=== PATIENT | male | born 1945 | race Caucasian/White ===

== ENCOUNTER → 2021-10-11 | Outpatient (CLI) | payer MEDICARE, OTHER ==
[~2021-10-11] MED LIST: ALEVE 220MG220 MG PO; AMARYL1 MG PO; ASPI325T6 PO; COLACE 100100 MG/CAP PO; COZAAR 25MG25 MG/TAB PO; GLUCOPHAGE500 MG/TAB PO; NEURONTIN300 MG/CAP PO; NORCO 325 MG-7.1 TAB PO; PRAVACHOL10 MG PO; PROSCAR 5MG5 MG PO; TYLENOL 500MG500 MG PO; VITAMIN D1000 IU PO
== END ==
LOC: COL.RAD 14:43
DX: Z12.2 Encounter for screening for malignant neoplasm of respiratory organs (principal); Z87.891 Personal history of nicotine dependence